=== PATIENT | male | born 1990 | race Caucasian/White ===

== ENCOUNTER → 2020-09-28 | Outpatient (CLI) | payer BC ==
--- NOTE | 2020-09-29 08:02 | REP ---
INDICATION: EFFUSION OF [place] KNEES. Rule out meniscal tear. COMPARISON: None. TECHNIQUE: Axial, coronal, and sagittal imaging planes utilized. T1, proton density and T2 weighted scans are included with without fat saturation in the usual fashion. FINDINGS: Cortical and medullary bone signal intensity are normal. There is a very small quantity of joint fluid in the suprapatellar bursa of the left knee. On axial images, the femoral trochlear groove is somewhat shallow and the patella sits slightly lateral relative to the trochlear groove. Medial and lateral patellar retinacular structures are intact. Patellar articular cartilage is normal. Femoral trochlear articular cartilage is intact. Anterior and posterior cruciate ligaments have a normal appearance. Patellar and quadriceps tendons are intact. There is no evidence of medial or lateral collateral ligament disruption. No medial or lateral meniscal tear is appreciated. There is mild edema in the pre tibial and prepatellar tendon subcutaneous fat anteriorly. The extra-articular soft tissues are otherwise unremarkable. No skeletal muscle lesion is seen. There is a tiny slit-like Lee's cyst. IMPRESSION: Slightly lateral position of of the patella on axial images relative to the femoral trochlear groove. Minimal joint fluid. Pre patellar subcutaneous fat edema. No internal derangement seen. <Electronically signed by Francois Mcguire > 09/29/20 [id number]
--- NOTE | 2020-09-29 08:08 | REP ---
INDICATION: EFFUSION OF [place] KNEES. Prior surgery is the right knee. Rule out meniscal tear. COMPARISON: None. TECHNIQUE: Axial, coronal, and sagittal imaging planes utilized. T1, proton density and T2 weighted scans are obtained in the usual fashion with and without fat saturation. FINDINGS: There is metallic field susceptibility artifact from 2 metallic screws in the proximal tibia at the level of the anterior tibial apophysis. There is thickening of the distal patellar tendon although it is T1 and T2 signal intensity is normal and low. No tendon disruption is seen. Quadriceps tendon is unremarkable. Anterior and posterior cruciate ligaments are intact. There is no evidence of medial or lateral collateral ligament disruption. Cortical and medullary bone signal intensity are normal apart from the metallic artifact. 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 Some fissuring. No full-thickness articular cartilage lesion. Femoral trochlear articular cartilage is unremarkable. There is a small quantity of suprapatellar joint fluid. There is a tiny slit-like a Lee's cyst. There is no medial or lateral meniscal tear seen. No other articular cartilage lesion is appreciated. IMPRESSION: Two pins in the proximal tibia anteriorly. Suggestive of prior patellar tendon repair. The distal patellar tendon is somewhat thickened but otherwise intact. Minimal joint fluid. Otherwise negative. <Electronically signed by Francois Mcguire > 09/29/20 [id number]
== END ==
LOC: M RAD 14:56
PROVIDERS: ATTEND Physician Assistant
DX: M25.461 Effusion, right knee (principal); M25.462 Effusion, left knee; Z98.1 Arthrodesis status